=== PATIENT | male | born 1935 | race Caucasian/White ===

== ENCOUNTER → 2019-07-14 | Outpatient (CLI) | payer OTHER ==
[~2019-07-14] VITALS: Ht 172.7 cm; Wt 90.7 kg
[~2019-07-14] MED LIST: ADVIL PM CAPLE1 EACH PO; EXELON1 EAC1 TRANSDERM; INDAPAMIDE1.25 MG PO; INDERAL40 MG PO; IRBESARTAN300 MG PO; LANSOPRAZOLE15 MG PO; MELATONIN5 M1 PO; MIRALAX17 GM PO; NEURONTIN 300300 M1 PO; NORTRIPTYLINE H25 M3 PO; PLACEBO #001 EACH PO; SIMVASTATIN40 MG PO; UNICOMPLEX M TA1 TA1 PO; ZYLOPRIM300 MG PO
--- NOTE | ~2019-07-14 | HPC ---
[facility] [address] [place] [address] PAIN MANAGEMENT CONSULTATION Name: ADRIAN REID Room #: REG [facility]#: [id number] Admission: 07/14/19 ������������������ Attend Phys: Antione Latif MD Discharge: ������������������ Date of : 35 Report #: [id number] THIS REPORT FOR: //name// CC: Skyler Latif DATE OF SERVICE: 07/14/2019 CHIEF COMPLAINT: Back pain and a history of spinal stenosis. HISTORY OF PRESENT ILLNESS: The patient is an 83-year-old gentleman who has been referred to the pain clinic for evaluation of chronic back pain. He has been noticing limitation in his ability to engage in activities because of this spinal stenosis. Pain is in his low back and particularly radiates down into his extremities when he is walking, standing and performing activities of daily living. He has not had back surgery. Pain is primarily down his left side with his left leg becoming numb. Notes his pain improves somewhat when he is sitting in his recliner. Pain is increased and become more problematic over the last 1-1/2 years. It has been somewhat ongoing for the last 10 years. Describes it as intermittent, periodic, gnawing and throbbing. The patient is beginning to exhibit some signs of Alzheimer's. He has more difficulty describing his situation at this juncture and his and daughter help provide the history of present illness. ALLERGIES: AMLODIPINE, SHORTNESS OF BREATH; HYDROCHLOROTHIAZIDE, SHORTNESS OF BREATH; LISINOPRIL, SHORTNESS OF BREATH; TERAZOSIN, SHORTNESS OF BREATH; ALLOPURINOL, LESS PROBLEMS WITH LORDOSIS; BENAZEPRIL, COUGH; DICLOFENAC, DONEPEZIL, ANOREXIA; DOXYCYCLINE, STOMACH PAINS; FELDENE, DIZZINESS; GUANFACINE, CONSTIPATION; HYDROCODONE/ACETAMINOPHEN, DROWSINESS; LYRICA, TARDIVE DYSKINESIA; MEMANTINE, TARDIVE DYSKINESIA; METOPROLOL, BRADYCARDIA; TRAMADOL AND DILTIAZEM, RASH. PAST MEDICAL HISTORY: Adenomatous colon polyp, coronary artery calcium score of 128, allergic rhinitis, aortic valve regurgitation, BPH, dilation of the aorta 3.9 cm, essential hypertension, generalized arthritis, GERD, gout, hearing loss, hypercholesterolemia, lumbar spine, spinal stenosis, Mobitz II, nonischemic cardiomyopathy, peripheral neuropathy, Rosacea, senile dementia, skin cancer, tinnitus. 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 SOCIAL HISTORY: He is , retired, has not worked in the last 23 years. REVIEW OF SYSTEMS: Fatigue, weakness, eye disease, wears glasses, [facility] [address] [place] [address] PAIN MANAGEMENT CONSULTATION Name: ADRIAN REID Room #: REG [facility]#: [id number] Admission: 07/14/19 ������������������ Attend Phys: Antione Latif MD Discharge: ������������������ Date of : 35 Report #: [id number] glaucoma/cataracts, hearing loss, chronic sinus problems, heart troubles, ____ changes, memory loss, confusion, Alzheimer's, insomnia, hot and cold intolerance. LABORATORY DATA: MRI of the lumbar spine dated 07/13/2019: 1. L3-L4 disk bulge with small central protrusion. Facet hypertrophy. Ligamentum flavum thickening. Moderate spinal canal stenosis. Narrowing of the lateral recesses. Moderate left greater than right neural foraminal stenosis due to disk bulge and facet hypertrophy with ligamentum flavum thickening. 2. L4-L5 disk bulge, asymmetry in the left central and foraminal locations. Facet hypertrophy. Ligamentum flavum thickening. Moderate spinal canal stenosis, effacement of the lateral recess. Moderate left and [id number]-ic-oxfrubge right neural foraminal stenosis. 3. L5-S1 disk bulge. Facet hypertrophy. Ligamentum flavum thickening. Moderate spinal canal stenosis. Narrowing of the lateral recesses. Moderate bilateral neural foraminal stenosis due to the disk bulge and ligamentum flavum thickening. Severe spinal cord stenosis at L1-L2 causes redundancy of the proximal cauda equina. PAIN CLINIC ASSESSMENT AND PQRS: 1. Osteoarthritic changes involving his left lower extremity. Has had a right knee replacement. The patient is not being treated for rheumatoid arthritis. 2. Height 5 feet 8 inches, weight 202 pounds, BMI is 30. 3. Vital signs: Blood pressure 136/70, pulse 73, respiratory rate 16, room air saturation 97%. 4. Pain intensity 4/10. 5. Fall history: The patient fell 2-3 months ago. 6. Blood thinner. The patient is not on a blood thinning medication. 7. Hypertension. The patient is being treated for hypertension. 8. Opioids greater than 6 weeks. 9. Risk assessment tool, low for opioid use. 10. Functional assessment tool 43/70. 11. Recreational drug use. The patient denies. 12. Tobacco: The patient denies frequent use of alcohol. PHYSICAL EXAMINATION: GENERAL: The patient is a well-developed, well-nourished white male. Appears his stated age of 83 years of age. He is accompanied by his and daughter. He is alert and oriented to person and place. HEENT: Normocephalic, atraumatic. Extraocular eye muscles intact. Sclerae nonicteric. Mucous membranes are moist. NECK: Without adenopathy or JVD. HEART: Regular rate. ABDOMEN: Nontender. EXTREMITIES: Upper extremity muscle strength judged to be 5-/5 for the major muscle groups in the upper extremity. The patient without significant [facility] [address] [place] [address] PAIN MANAGEMENT CONSULTATION Name: ADRIAN REID Room #: REG [facility].#: [id number] Admission: 07/14/19 ������������������ Attend Phys: Antione Latif MD Discharge: ������������������ Date of : 35 Report #: [id number] scoliosis, kyphosis or lordosis. The patient's family states that he notes increased pain and discomfort in his back when prolonged sitting or walking. Has pain that radiates down into the left lower leg with some numbness. Positive straight leg raise. IMPRESSION: 1. Spinal stenosis with lumbar radiculopathy, L4-L5 dermatomal distribution. 2. Adenomatous colon polyp. 3. Coronary artery calcium score of 128. 4. Allergic rhinitis. 5. Aortic valve regurgitation. 6. Benign prostatic hypertrophy. 7. Dilation of the aorta 3.9 cm. 8. Essential hypertension. 9. Generalized arthritis. 10. Gastroesophageal reflux disease. 11. Gout. 12. Hearing loss. 13. Hypercholesterolemia. 14. Lumbar spine, spinal stenosis. 15. Mobitz II. 16. Nonischemic cardiomyopathy. 17. Peripheral neuropathy. 18. Rosacea. 19. Senile dementia. 20. Skin cancer. 21. Tinnitus. RECOMMENDATIONS: We discussed treatment options with the patient. Risks and benefits of an epidural steroid injection were discussed. Possible complications of the procedure were reviewed. We will proceed in the near future with an epidural steroid injection. The patient's and daughter concur. The patient agrees to proceed as well. He will return to the Pain Clinic at which time he will then undergo an epidural steroid injection to help decrease the pain and discomfort associated with spinal stenosis. We would like to thank you for letting us participate in his care. We hope he continues to improve. ��������������������������������������������� ���������������������������������������� By: ��������������������������������������������� [id number] Antione Latif MD /MARY
[2019-07-14 10:10] VITALS: BP 125/79
--- NOTE | 2019-07-14 10:40 | NUR ---
Pain Clinic Assessment: 1. History of Osteoarthritis: Left Lower Extremity Right Lower Extremity History of Rheumatoid Arthritis: Not Applicable 2. Height: 5 ft. 8 in. 172.7 cm. Weight: 200.0 lb. oz. 90.720 kg. Patient's BMI: 30.4 3. Vital Signs: BP: 125/79 Pulse: 80 Resp: 18 Temp: 02 Sat: 94 ECG Mon: 4. Pain Intensity: 4 5. Fall Risk: Dizziness: Y Needs help standing or walking: Y Fallen in the last 3 months: Y Fall risk comments: FELL 2-3 MONTHS AGO 6. Patient on Blood Thinner: None 7. History of Hypertension: Y 8. Opioid Therapy greater than 6 weeks: N Opiate Contract Signed: 9. Risk Assessment Tool Provided: 10. Functional Assessment Tool: 11. Recreational Drug Use: Never Drug Type: Tobacco Use: Never Smoker Tobacco Type: Amount or Packs/day: How Many Years: Alcohol Use: Yes Frequency: Weekly Quant: 1-2
== END ==
LOC: PAIN 06:52
DX: M48.062 Spinal stenosis, lumbar region with neurogenic claudication (principal); I35.1 Nonrheumatic aortic (valve) insufficiency; E78.00 Pure hypercholesterolemia, unspecified; K21.9 Gastro-esophageal reflux disease without esophagitis; I10 Essential (primary) hypertension; M19.90 Unspecified osteoarthritis, unspecified site; J30.9 Allergic rhinitis, unspecified; N40.0 Benign prostatic hyperplasia without lower urinary tract symptoms; G62.9 Polyneuropathy, unspecified; I42.9 Cardiomyopathy, unspecified; F03.90 Unspecified dementia, unspecified severity, without behavioral disturbance, psychotic disturbance, mood disturbance, and anxiety; H93.13 Tinnitus, bilateral

== ENCOUNTER → 2019-07-26 | Outpatient (CLI) | payer OTHER ==
[~2019-07-26] VITALS: Ht 172.7 cm; Wt 91.8 kg
[2019-07-26 09:32] VITALS: BP 136/71
--- NOTE | 2019-07-26 09:49 | NUR ---
Pain Clinic Assessment: 1. History of Osteoarthritis: Left Lower Extremity Right Lower Extremity History of Rheumatoid Arthritis: Not Applicable 2. Height: 5 ft. 8 in. 172.7 cm. Weight: 202.4 lb. oz. 91.808 kg. Patient's BMI: 30.8 3. Vital Signs: BP: 136/71 Pulse: 73 Resp: 16 Temp: 02 Sat: 97 ECG Mon: 4. Pain Intensity: 4 5. Fall Risk: Dizziness: N Needs help standing or walking: Y Fallen in the last 3 months: N Fall risk comments: FELL 2-3 MONTHS AGO 6. Patient on Blood Thinner: None 7. History of Hypertension: Y 8. Opioid Therapy greater than 6 weeks: N Opiate Contract Signed: 9. Risk Assessment Tool Provided: LOW RISK 0/3 10. Functional Assessment Tool: 43 11. Recreational Drug Use: Never Drug Type: Tobacco Use: Never Smoker Tobacco Type: Amount or Packs/day: How Many Years: Alcohol Use: Yes Frequency: Weekly Quant: 1
== END | disposition home or self-care (01) ==
LOC: PAIN 08:57
DX: M54.16 Radiculopathy, lumbar region (principal); G89.29 Other chronic pain; Z79.899 Other long term (current) drug therapy